=== PATIENT | female | born 1950 ===

== ENCOUNTER → 2017-05-29 | Day surgery (SDC) | payer OTHER ==
[~2017-05-29] MED LIST: ASA81 MG PO; CATAFLAN PO; CLONAZEPAM1 MG PO; LOPRESSOR HCT1 EACH PO; METOPROLOL ER-1 EACH PO
== END | disposition home or self-care (01) ==
LOC: ADM 05-24 14:30 → CIR.AMB 05:42
DX: M06.842 Other specified rheumatoid arthritis, left hand (principal)
CPT/HCPCS: 26531; C1776